=== PATIENT | female | born 1990 | race African-American/Black ===

== ENCOUNTER 2018-05-22 11:16 | Emergency (ER) | payer BC ==
[~2018-05-22] VITALS: Ht 162.6 cm; Wt 83.0 kg
[~2018-05-22 11:16] MED LIST: ANECREAM530 GM TOP; BACTRIM DS TAB1 EACH PO; CELEXA20 MG PO; COLACE100 MG PO; DIFLUCAN200 MG PO; IBUPROFEN 600600 M1 PO; IBUPROFEN 800800 MG PO; KEFLEX500 MG PO; MIRALAX17 GM PO; ONDANSETRON HCL4 M2 PO; PREDNISONE 10 M10 M1 PO; PROCTOFOAM15 GM RECTAL; PYRIDIUM100 M1 PO; TRAMADOL 50 MG50 MG PO; TRINATE TABLET1 TAB PO; ULTRAM 50MG TAB50 MG PO; VENTOLIN HFA 1818 GM INH; VISTARIL 25 MG25 M1 PO; ZPAK PO
[2018-05-22 11:48] LABS: ABSOLUTE BASOPHILS 0.1 thou/uL (0.0-0.2); ABSOLUTE EOSINOPHILS 0.3 thou/uL (0.0-0.7); ABSOLUTE LYMPHOCYTES 1.9 thou/uL (0.8-5.3); ABSOLUTE MONOCYTES 0.5 thou/uL (0.0-1.2); ABSOLUTE NEUTROPHILS 2.7 thou/uL (1.6-8.1); BASOPHILS 0.9 %; EOSINOPHILS 6.4 %; HEMATOCRIT 46.2 % (37.0-47.0); LYMPHOCYTES 34.5 %; MCH 34.2 pg (26.0-34.0); MCHC 34.5 g/dL (28.0-37.0); MCV 99.1 fL (80.0-100.0); MONOCYTES 8.9 %; MPV 8.4 fl. (7.2-11.1); NUCLEATED RBCS 0 /100WBC; PLATELET COUNT* 257 thou/uL (150-400); POLYS 49.3 %; RBC 4.66 mil/uL (4.20-5.00); RDW-CV 13.5 % (10.5-14.5); WBC 5.4 thou/uL (4.0-11.0)
[2018-05-22 12:01] LABS: ANION GAP 6 mmol/L (7-16); BUN 8 mg/dL (7-18); CHLORIDE 104 mmol/L (98-107); CO2 28 mmol/L (21-32); CREATININE 0.9 mg/dL (0.6-1.3); GLUCOSE 94 mg/dL (70-99); POTASSIUM 3.7 mmol/L (3.5-5.1); SODIUM 138 mmol/L (136-145)
[2018-05-22 12:13] LABS: ALBUMIN 3.8 g/dL (3.4-5.0); ALKALINE PHOSPHATASE 103 U/L (46-116); LIPASE 223 U/L (73-393); NT-PRO BRAIN NAT PEPTIDE 5 pg/mL (<300); SGOT 13 U/L (15-37); SGPT 22 U/L (30-65); TOTAL BILIRUBIN 0.2 mg/dL (<0.1-1.0); TOTAL PROTEIN 7.7 g/dL (6.4-8.2); TROPONIN-I LEVEL <0.06 ng/mL (<0.06)
[2018-05-22 14:55] VITALS: BP 113/73
--- NOTE | 2018-05-23 13:59 | EKG ---
[place] [address] ELECTROCARDIOGRAM REPORT Name: KELSEYROLY MARI Room: [facility]#: [id number] Admission: 05/22/18 Attend Phys: Discharge: 05/22/18 Date of : 89 Report #: [id number] THIS REPORT FOR: //name// [facility] ED Test Date: 2018-05-22 Test Time: 11:23:23 Pat Name: ROLY COLE Department: Room: Gender: F Dependency Counselor: Daisy RANDLE : 1990 Requested By: Alexandr Mondragon Order Number: [id number] MD: Lavon Elkins Measurements Intervals [place] Rate: 91 P: 45 MI: 143 QRS: 76 QRSD: 90 T: 1 QT: 366 QTc: 451 Interpretive Statements Sinus rhythm Probable left atrial enlargement Baseline wander in lead(s) II,III,aVF,V5 Compared to ECG 11/30/2012 18:30:21 Sinus arrhythmia no longer present Right-axis deviation no longer present ST (T wave) deviation no longer present Electronically Signed On 05-23-2018 13:58:52 CDT by Lavon Elkins [email or web address] <ELECTRONICALLY SIGNED> By: Lavon Elkins MD, [facility] 05/23/18 [id number] Lavon Elkins MD, [facility] /EPI
== END 2018-05-22 15:00 | disposition home or self-care (01) ==
LOC: M.ERS 11:16
PROVIDERS: Emergency Medicine Emergency Medical Services
DX: R00.2 Palpitations (principal); J45.909 Unspecified asthma, uncomplicated; F41.9 Anxiety disorder, unspecified; Z91.041 Radiographic dye allergy status